=== PATIENT | male | born 1935 | race Caucasian/White ===

== ENCOUNTER 2025-05-08 15:10 | Emergency (ER) | payer MEDICARE ==
[~2025-05-08] VITALS: Ht 193 cm; Wt 123.4 kg
[2025-05-08 15:44] LABS: CALCIUM, SERUM 9.2 mg/dL (8.5-10.1); CREATININE 0.9 mg/dL (0.6-1.3); SODIUM SERUM 139.0 mmol/L (136-145); UREA NITROGEN, BLOOD 26.0 mg/dL (7-18)
[2025-05-08 15:50] LABS: PLATELET COUNT (AUTO) 141 K/uL (150-450); RED BLOOD CELL COUNT(AUTO) 4.25 MIL/uL (4.5-6.0); RED CELL DISTRIBUTION WIDTH 17.3 % (11.5-15.0); WHITE BLOOD COUNT (AUTO) 2.4 K/uL (4.3-11.0)
[2025-05-08 15:51] LABS: ASPARTATE AMINOTRANSFERASE 18.0 U/L (15-37); TOTAL PROTEIN, SERUM 7.6 g/dL (6.4-8.2)
[2025-05-08 15:58] LABS: INR 1.07 (0.91-1.10)
[2025-05-08] MEDS ORDERED: TADA5TAB13 PO (16:44)
[2025-05-08 16:59] VITALS: BP 150/91; TEMP 98; O2SAT 96
[2025-05-08 18:01] LABS: BASOPHILS % (MANUAL) 0 % (0.0-2.0); EOSINOPHILS % (MANUAL) 4 % (0-4); LYMPHOCYTES % (MANUAL) 21 % (16-48); METAMYELOCYTES % 0 % (0-0); MONOCYTES % (MANUAL) 10 % (0-11.0); NEUTROPHILS % (MANUAL) 65 (42-76)
[2025-05-08 18:02] LABS: PLATELET ESTIMATE DECREASED
== END 2025-05-08 17:00 | disposition home or self-care (01) ==
LOC: ER 15:16
DX: S22.42XA Multiple fractures of ribs, left side, initial encounter for closed fracture (principal); I48.91 Unspecified atrial fibrillation; E86.0 Dehydration; N40.0 Benign prostatic hyperplasia without lower urinary tract symptoms; Z79.01 Long term (current) use of anticoagulants; Z88.1 Allergy status to other antibiotic agents; W22.03XA Walked into furniture, initial encounter; Y93.89 Activity, other specified; Y92.003 Bedroom of unspecified non-institutional (private) residence as the place of occurrence of the external cause; Y99.8 Other external cause status
CPT/HCPCS: 36415; 71250-TC; 80048-TC; 80076-TC; 83690-TC; 85027-TC; 85730-TC

== ENCOUNTER 2025-06-08 10:17 | Emergency (ER) | payer MEDICARE, OTHER ==
[~2025-06-08] VITALS: Ht 193 cm; Wt 134.3 kg
[~2025-06-08 10:17] MED LIST: TADA5TAB13 PO
[2025-06-08] MEDS ORDERED: FUROSEMIDE 40 MG/4 ML VIAL ONE (10:57)
[2025-06-08] MEDS: FUROSEMIDE 40 MG/4 ML VIAL IV ONE (11:12)
[2025-06-08 11:31] LABS: CALCIUM, SERUM 8.7 mg/dL (8.5-10.1); CREATININE 0.9 mg/dL (0.6-1.3); SODIUM SERUM 139 mmol/L (136-145); UREA NITROGEN, BLOOD 27 mg/dL (7-18)
[2025-06-08 11:32] LABS: PLATELET COUNT (AUTO) 135 K/uL (150-450); RED BLOOD CELL COUNT(AUTO) 4.34 MIL/uL (4.5-6.0); RED CELL DISTRIBUTION WIDTH 16.8 % (11.5-15.0)
[2025-06-08 11:35] LABS: WHITE BLOOD COUNT (AUTO) 1.8 K/uL (4.3-11.0)
[2025-06-08 11:40] LABS: INR 1.16 (0.91-1.10)
[2025-06-08 11:44] LABS: ASPARTATE AMINOTRANSFERASE 25 U/L (15-37); NT-PRO BNP 1864 pg/mL (0-125); TOTAL PROTEIN, SERUM 6.9 g/dL (6.4-8.2)
[2025-06-08 11:45] LABS: LACTIC ACID 0.9 mmol/L (0.4-2.0)
[2025-06-08] MEDS: IPRATROPIUM NEB FS 0.5 MG/2.5 ML AMPUL.NEB NEB ONE (12:17)
[2025-06-08] MEDS: ALBUTEROL FS 2.5 MG/3 ML VIAL.NEB CONTNEB ONE (12:17)
[2025-06-08] MEDS ORDERED: CEFTRIAXONE 1GM BAG (ER ONLY) 50 ML IV ONE (12:19)
[2025-06-08] MEDS: CEFTRIAXONE 1GM BAG (ER ONLY) 1 GM/50 ML PIGGYBACK IV ONE (12:24)
[2025-06-08] MEDS: AZITHROMYCIN 500 MG in IV D5W 250 ML IV ONE (12:46)
[2025-06-08] MEDS ORDERED: FURO-144 PO (12:55)
[2025-06-08] MEDS ORDERED: POTA-58 PO (12:55)
[2025-06-08] MEDS ORDERED: AMOX-430 PO (12:55)
[2025-06-08 12:57] LABS: EOSINOPHILS % (MANUAL) 1 % (0-4); LYMPHOCYTES % (MANUAL) 4 % (16-48); MONOCYTES % (MANUAL) 3 % (0-11.0); NEUTROPHILS % (MANUAL) 17 (42-76); PLATELET ESTIMATE DECREASED
[2025-06-08] MEDS ORDERED: IPRATROPIUM NEB FS 0.5 MG/2.5 ML AMPUL.NEB ONE (13:04)
[2025-06-08] MEDS ORDERED: ALBUTEROL FS 2.5 MG/3 ML VIAL.NEB ONE (13:04)
[2025-06-08 13:11] VITALS: O2SAT 96
[2025-06-08] MEDS ORDERED: ALBU1.257 NEB (13:15)
[2025-06-08 14:15] VITALS: BP 123/88; TEMP 97.8; O2SAT 98
== END 2025-06-08 14:15 | disposition home or self-care (01) ==
LOC: ER 10:19
DX: I50.9 Heart failure, unspecified (principal); I48.20 Chronic atrial fibrillation, unspecified; D72.819 Decreased white blood cell count, unspecified; J18.9 Pneumonia, unspecified organism; N40.0 Benign prostatic hyperplasia without lower urinary tract symptoms; J90 Pleural effusion, not elsewhere classified; Z79.899 Other long term (current) drug therapy; Z88.1 Allergy status to other antibiotic agents
CPT/HCPCS: 99285; 96365; 71250; 71045; 96366; 96375; 96368; 93005; 85027; 80048; 87040 ×2; 83605; 80076; 85007; 36415; 84484 ×2; 85730; 83880; 94640; J1938; J0456; J0696; J7060